=== PATIENT | male | born 2000 | race Native Hawaiian/Other Pacific Islander ===

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

== ENCOUNTER 2018-01-06 11:26 | Emergency (ER) | payer BC, OTHER ==
[~2018-01-06] VITALS: Ht 160 cm; Wt 75.3 kg
[~2018-01-06 11:26] MED LIST changes: +ALBU18002 INH; -ALBU1AER9 INH; -SNGCH5 PO
[2018-01-06 11:32] VITALS: TEMP 36.8; Ht 160 cm; Wt 75.3 kg
--- NOTE | 2018-01-06 12:13 | DIAGNOSTIC IMAGING REPORT ---
L HAND MIN 3 VIEWS ROUTINE, R HAND MIN 3 VIEWS ROUTINE CLINICAL HISTORY: 17 years-old Male presenting with left hand pain. TECHNIQUE: Frontal, oblique, and lateral views of the right and left hands were obtained. COMPARISON: None. FINDINGS: Right hand: No acute fracture or malalignment. No advanced degenerative change. No radiographic soft tissue abnormality. Left hand: No acute fracture or malalignment. No advanced degenerative change. No radiographic soft tissue abnormality. IMPRESSION: 1. No acute osseous injury of the right or left hand. Electronically signed by: Armond Landry M.D. 01/06/2018 12:11 PM Dictated Date/Time: 01/06/2018 12:10 PM
[2018-01-06] MEDS ORDERED: CEPH500C PO (12:36)
[2018-01-06 12:52] VITALS: BP 141/81; PULSE 61; O2SAT 96
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
== END 2018-01-06 12:53 | disposition home or self-care (01) ==
LOC: C.EDB 11:28 → C.EDD 12:53
DX: L03.012 Cellulitis of left finger (principal); S61.411A Laceration without foreign body of right hand, initial encounter; V49.9XXA Car occupant (driver) (passenger) injured in unspecified traffic accident, initial encounter; K56.1 Intussusception; Y92.488 Other paved roadways as the place of occurrence of the external cause